=== PATIENT | female | born 1990 | race Caucasian/White ===

== ENCOUNTER 2023-07-14 04:32 | Emergency (ER) | payer SELFPAY ==
[2023-07-14 05:47] LABS: Absolute Eosinophils 0.1 K/uL (0-0.5); Absolute Lymphocytes (CBC) 1.8 K/uL (0.7-4.9); Absolute Monocytes 0.4 K/uL (0.1-1.3); Absolute Neutrophil 4.4 K/uL (1.8-8.0); Basophils % 0.6 % (0-1.3); Eosinophils % 1.2 % (0-4.4); Hematocrit 40.1 % (36.0-45.0); Hemoglobin 14.1 g/dL (12.0-15.0); Lymphocytes % 26.9 % (15.3-44.8); MCH 32.6 pg (27.0-35.0); MCHC 35.3 g/dL (32.0-36.0); MCV 92.3 fL (80-100); MPV 8.7 fL (7.6-11.3); Monocytes % 5.7 % (3.3-12.3); Neutrophils % 65.6 % (41.7-73.7); Nucleated Red Blood Cells % 0.2 % (0-0); Platelets 263 thou/uL (152-406); RBC Red Blood Cell Count 4.34 M/uL (3.86-4.86); Red Cell Distribution Width 14.1 % (12.1-15.2)
[2023-07-14 05:56] LABS: ALT/SGPT 41 U/L (13-56); AST/SGOT 27 U/L (15-37); Albumin 4.6 g/dL (3.4-5.0); Albumin/Globulin Ratio 1.3 (1.1-1.8); Alkaline Phosphatase 75 U/L (45-117); Anion Gap 8.9 mEq/L (5.0-15.0); BUN Blood Urea Nitrogen 10 mg/dL (7-18); Bicarbonate 26 mEq/L (21-32); Bilirubin Direct 0.4 mg/dL (0-0.2); Bilirubin Indirect, Calculated 0.8 mg/dL (0.2-0.8); Bilirubin Total 1.2 mg/dL (0.2-1.0); Globulin 3.5 g/dL (2.3-3.5); Glomerular Filtration Rate 88 ml/min (=/>90); Glucose Level 104 mg/dL (74-106); Potassium 2.9 mEq/L (3.5-5.1); Protein, Total 8.1 g/dL (6.4-8.2); Sodium Level 137 mEq/L (136-145)
[2023-07-14 05:57] LABS: PT Prothrombin Time 13.6 SECONDS (9.5-12.5); PTT, Activated Partial Thromb 30.5 SECONDS (24.3-36.9); Protime INR 1.24
[2023-07-14 07:03] LABS: Specific Gravity 1.029 (1.005-1.030)
[2023-07-14 07:10] LABS: Barbiturates NEGATIVE (NEGATIVE); Benzodiazepines NEGATIVE (NEGATIVE); Cocaine NEGATIVE (NEGATIVE); METHAMPHETAM NEGATIVE (NEGATIVE); Methadone NEGATIVE (NEGATIVE); Opiates NEGATIVE (NEGATIVE); Phencyclidine NEGATIVE (NEGATIVE); THC Cannibis POSITIVE (NEGATIVE)
[2023-07-14 07:20] LABS: Specific Gravity 1.029 (1.005-1.030); Urine Bacteria <20 /HPF (<20); Urine Bilirubin NEGATIVE (Negative); Urine Blood Negative (Negative); Urine Clarity Extremely Turbid (Clear); Urine Color Yellow (Yellow); Urine Culture Reflex Order NOT NEEDED; Urine Glucose NEGATIVE (Negative); Urine Ketones 3+ (Negative); Urine Microscopic Reflex YN ORDER UMIC; Urine Mucus 4+ /HPF (None Seen); Urine Nitrite NEGATIVE (Negative); Urine Protein 1+ (Negative); Urine RBC <5 /HPF (None Seen); Urine Urobilinogen 1+ (Normal)
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
[2023-07-14] MEDS ORDERED: POTASSIUM 25 MEQ EFFERV TAB ONE (08:25)
[2023-07-14 08:57] VITALS: BP 133/75; TEMP 98.1; O2SAT 100
--- NOTE | 2023-07-17 13:28 | EKG ---
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
== END 2023-07-14 08:33 | disposition home or self-care (01) ==
LOC: ER 04:32
DX: R44.2 Other hallucinations (principal)
CPT/HCPCS: 36415; 80048; 80076; 80143; 80179; 80307; 81001; 81025; 82077; 85025; 85610; 85730; 93005; 99291; 99292

== ENCOUNTER 2023-07-14 22:16 | Emergency (ER) | payer SELFPAY ==
[2023-07-14] MEDS ORDERED: IBUPROFEN 200 MG TAB PO ONE (23:38)
[2023-07-15 00:07] LABS: SARS-CoV-2 Antigen CONTROL BLUE LINE VIS/BG OK; SARS-CoV-2 Antigen Rapid Res Negative (Negative)
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
[2023-07-15 01:23] VITALS: BP 112/70; TEMP 97.9; O2SAT 99
== END 2023-07-15 00:52 | disposition home or self-care (01) ==
LOC: ER 22:16
DX: Z11.3 Encounter for screening for infections with a predominantly sexual mode of transmission (principal)
CPT/HCPCS: 36415; 87804; 87811; 99284